=== PATIENT | female | born 1950 | race Caucasian/White ===

== ENCOUNTER 2016-07-10 10:26 | Day surgery (SDC) | payer MEDICARE, MEDICAID ==
[~2016-07-10] VITALS: Ht 172.7 cm; Wt 60.4 kg
[2016-07-10] VITALS (9 sets, daily range): BP systolic 112–125; BP diastolic 65–84; PULSE 73–91; RESP 16–24; O2SAT 93–100
[~2016-07-10 10:26] MED LIST: HYDR12.5 PO; LIP40 PO; LISI-567 PO; Lactated Ringer's 1,000 ML IV ONE; PRD5T PO
[2016-07-10] MEDS ORDERED: MetoCLOpramide 5 mg/mL 2 mL Inj ONE (10:27)
[2016-07-10] MEDS ORDERED: fentaNYL-PF 50 mCg/mL 2 mL Inj ONE (10:27)
[2016-07-10] MEDS ORDERED: Propofol 10,000 mCg/mL 20 mL Inj ONE (10:27)
[2016-07-10] MEDS ORDERED: Ondansetron 2 mg/mL 2 mL Inj ONE (10:27)
[2016-07-10] MEDS ORDERED: Dexamethasone 4 mg/mL Inj ONE (10:27)
[2016-07-10] MEDS ORDERED: Lactated Ringer's 1,000 ML IV ONE (12:40)
[2016-07-10] MEDS ORDERED: levoFLOXacin 500 mg/100 mL D5W Premix IV ONE (12:54)
[2016-07-10] MEDS: Levofloxacin 500 mg/100 mL D5W IV ONE ×2 (14:39→14:45)
--- NOTE | 2016-07-10 14:57 | PCM.HPANE ---
Patient Data Surgeon Admitting Provider: Attending Provider:Venessa Eason MD Primary Care Physician:Nicanor Campos MD Other Provider: Reason for Visit Right Kidney Stone Ht/WT & BMI Height (Feet): 5 Height (Inches): 8 Weight (Kilograms): 60.781 Body Mass Index 20.00 Allergies Coded Allergies: Penicillins (Verified Allergy, Severe, SWELLING, 07/06/16) latex (Verified Allergy, Severe, Rash, 07/06/16) TAPE (Verified Allergy, Unknown, UNKNOWN, 07/06/16) acetaminophen (Verified Allergy, Unknown, UNKNOWN, 07/06/16) oxycodone (Verified Allergy, Unknown, UNKNOWN, 07/06/16) Uncoded Allergies: iodine dye (Allergy, Severe, BURNING, 02/12/13) Past Anesthesia History Anesthesia History: Denies:: Anesthesia Reactions, Malignant Hyperthermia Diabetes History Hx Diabetes?: No MRSA MRSA: No Medications Hypertension Medication: Yes (HCTZ,LISINOPRIL) Reported Medications Prednisone (PredniSONE)5 Mg Tab5 Mg PO DAILY Ref 0 07/06/16 Lisinopril 20 Mg Ekwalw64 Mg PO DAILY 30 Days Ref 0 07/06/16 Atorvastatin (Lipitor)40 Mg Bnbysj16 Mg PO DAILY Ref 0 07/06/16 Hydrochlorothiazide 12.5 Mg Oveoovl01.5 Mg PO DAILY 30 Days Ref 0 07/06/16 Discontinued Reported Medications Estrogens Conjugated (Premarin)0.625 Mg Tablet0.625 Mg PO DAILY 30 Days Ref 0 X 21 DAYS, 7 DAYS OFF 07/06/16 Methotrexate Sodium (Methotrexate)2.5 Mg Tablet2.5 Mg PO Q12H WEEKLY X 3 DOSES 07/06/16 Cholecalciferol-Expunged Drug, Do Not Renew! (Vitamin D3-Expunged Drug, Do Not Renew!)1,000 Unit Tablet1,000 Units PO DAILY PLEASE VERIFY DOSAGE 02/12/13 Black Cohosh Root 1 Gm Powder1 Gm MC DAILY PLEASE VERIFY DOSAGE 02/12/13 MULTIVITAMIN-Expunged Drug, Do Not Renew! (MULTI VITAMIN -Expunged Drug, Do Not Renew!)1 Each Tablet1 Each PO DAILY 02/12/13 Cranberry Fruit (Cranberry)450 Mg Ymbnbi732 Mg PO DAILY PLEASE VERIFY DOSAGE 02/12/13 Calcium Carb & Cit/Vitamin D3 (Citracal + D Er Tablet)1 Each Tablet.er1 Each PO DAILY 02/12/13 Estrogens Conj-Expunged Drug, Do Not Renew! (Premarin-Expunged Drug, Do Not Renew!)0.3 Mg Tablet0.3 Mg PO DAILY 02/12/13 Atorvastatin-Expunged Drug, Do Not Renew! 80 Mg Xfjkzt75 Mg PO DAILY #30 TAB For Cholesterol Management. 02/12/13 [Methotrexate] No Conflict Check10 Tab PO WKLY 02/12/13 Etanercept-Expunged Drug, Do Not Renew! (Enbrel-Expunged Drug, Do Not Renew!)50 Mg Kit50 Mg SUBQ Q7D 30 Days 02/12/13 History History of ENT Problems?: Yes HEENT History: Positive for:: Dysphagia Hx of Heart Problems?: Yes Cardiovascular History: Positive for:: Abdominal Aortic Aneurism (S/P ENDOVASCULAR AAA RPR) Cardiac Surgery (HEART CATH/STENTING PRIOR TO 2003) Chest Pain Coronary Artery Disease (MS 1998) Hypertension (HYPERLIPIDEMIA) Denies:: Heart Murmur Hx of Respiratory Problem?: No Respiratory History: Denies:: Use of C-PAP Machine Hx Neurologic Problems?: Yes Hx of GI Problems?: Yes Gastrointestinal History: Positive for:: Gall Bladder Disease (S/P MADDY) Gastroesphageal Reflux (HX PUD,H.PYLORI,GASTRIC BEZOAR,GASTRIC OUTLET OBSTRUCTION,JACOME'S ESOP ) Hepatitis (HEP C BY HX, TESTING IN 2004 NEG.) Hiatal Hernia Liver Disease (HX LACERATED LIVER) Rectal Bleeding (HEMORRHOIDS) Other GI Pertinent History: S/P PARTIAL GASTRECTOMY/SPLENECTOMY,APPY(@ TIME OF HYST),ESOPHAGEAL DILATION Hx of Problems?: Yes Genitourinary History: Positive for:: Kidney Stones (RT KIDNEY STONE=CURRENT PROBLEM S/P RT ESWL 2012) Other Pertinent History: C/OF ABD-RT FLANK PAIN,HEMATURIA,FREQUENCY Female Hx: Denies:: Currently Skin History: Denies:: History Skin Disorders? Pressure Ulcers Hx Musculoskeletal Problems?: Yes Musculoskeletal History: Positive for:: Osteoarthritis (OSTEOPOROSIS) Rheumatoid Arthritis (NO LONGER TAKES METHOTREXATE/BIOLOGICS R/T LIVER ISSUES) Hx of Psycho/Social Problems?: No Hx Surgeries?: Yes (CYSTO,SPLENECTOMY,PARTIAL GASTRECTOMY,MADDY,HYST/APPY, HEART CATH/STENTING) Hx Any Other Health Problems?: Yes Other History: Positive for:: Cancer (?UTERINE) Hospitalization Denies:: Endocrine Disease (C/OF COLD INTOLERANCE) Thyroid Disease History Blood Transfusions: Positive for:: Blood Transfusions Denies:: Blood Transfuse Reaction Hx Diabetes: No Hx Alcohol Use: YesAlcoholic Drinks Per Day: 1/MONTHHx Substance Use: Yes ( MARIJUANA)Have You Smoked inLast 12 mo: YesApprox How Many Cigarettes/day: 8C/ DAY FOR 40YRS Stop/Bang S-Snoring: Do You Snore Loudly: No T-Tired: feel tired, fatigued: Yes O-Obsered: Observed not breath: No P-Blood Pressure: treated: Yes B- Body Mass Index > 35 kg/m2: No A- Age over 50: Yes N- Neck Large Circumference: No G- Gender Male: No DEONNA Total Score: 3 Risk Assessment Category Category 1A: Patient has history of documented sleep apnea, and HAS NOT received any narcotic, sedative or anesthesia administration during this stay. Category 1B: Patient has history of documented sleep apnea, and HAS received any narcotic , sedative or anesthesia administration during this stay Category 2: Patient has SUSPECTED Obstructive Sleep Apnea, and HAS received any narcotic , sedative or anesthesia administration during this stay. Category 3: Patient has SUSPECTED Obstructive Sleep Apnea and HAS NOT received narcotic, sedative or anesthesia administration during this stay. Category 4: Outpatient in Procedural Areas with known sleep apnea or who screen positive for High Risk via the STOP/BANG questionnaire. Exam Exam General Appearance: Alert, Oriented X3, Cooperative, No Acute Distress HEENT/AIRWAY: MP 2 Lungs: Clear to Auscultation Heart: Exam Unremarkable Plan Impression Patient chart reviewed, patient interviewed and anesthestic plan with risks, benefits, and alternatives discussed, and informed consent obtained. NPO Status: 02/12@1930, apple juice @2400 ASA Physical Status: ASA2 Mod Systemic Disease Anesthetic Plan: GA Bene/Risks/Altern/Consents: Yes HP Complete Prior to Induction: Yes Williams Mcginnis MD Jul 10, 2016 08:58
[2016-07-10] MEDS ORDERED: oxyCODONE-Acetamin 5-325 mg Tablet PO PRN (15:40)
[2016-07-10] MEDS ORDERED: HYDROmorphone 1 mg/mL Inj ONE (15:54)
--- NOTE | 2016-07-10 15:54 | DRSVH ---
PROCEDURE: X-RAY RETROGRADE UROGRAPHY INDICATIONS: RIGHT STONE, CYSTO, RIGHT STENT PLACEMENT TECHNIQUE: 3 intra-operative images acquired by the Urology service. COMPARISON: Outside Film, CT, CT ABD PELVIS WO CON, 03/20/2016, 11:47. FINDINGS: Intraoperative fluoroscopy images demonstrate contrast injection of the right renal collect ing system. There is a 1.2 cm filling defect within the renal pelvis in this patient with history of renal pelvic calculus consistent with renal stone. The visualized portions of the ureter are grossly normal and no extravasation of contrast media seen. Ureteral stent in place. IMPRESSION: 1. A 1.2 cm right renal pelvic stone. 2. Placement of right ureteral stent. Dictated by: Edin BEASLEY Interpreted: Angelica Cheung MD on 07/10/2016 at 15:52 Transcribed by: JASKARAN on 07/10/2016 at 15:53 Approved by: Angelica Cheung M.D. on 07/10/2016 at 17:22
[2016-07-10] MEDS ORDERED: Lactated Ringer's 1,000 ML IV SCH (15:58)
[2016-07-10] MEDS ORDERED: Lactated Ringer's 500 ML IV PRN (15:58)
[2016-07-10] MEDS ORDERED: EPHEDrine Sulfate 50 mg/mL Inj IVPUSH PRN (16:00)
[2016-07-10] MEDS ORDERED: fentaNYL-PF 50 mCg/mL 2 mL Inj IVPUSH PRN (16:00)
[2016-07-10] MEDS ORDERED: HYDROmorphone 1 mg/mL Inj IVPUSH PRN (16:00)
[2016-07-10] MEDS ORDERED: Ondansetron 2 mg/mL 2 mL Inj IVPUSH PRN (16:00)
[2016-07-10] MEDS ORDERED: MetoCLOpramide 5 mg/mL 2 mL Inj IVPUSH PRN (16:00)
[2016-07-10] MEDS ORDERED: Phenylephrine 10,000 mCg/mL Inj IVPUSH PRN (16:00)
[2016-07-10] MEDS ORDERED: Dexamethasone 4 mg/mL Inj IVPUSH PRN (16:00)
--- NOTE | 2016-07-10 16:12 | PCM.ANEP1 ---
Post Anesthesia Phase 1 PACU Phase 1 Assessment Vital Signs Vital Signs Date Time Temp Pulse Resp B/P Pulse Ox O2 Delivery O2 Flow Rate FiO2 07/10/16 12:21 36.8 89 18 116/83 97 Room Air Anesthetic Administered: GA Level of Alertness: Sleeping, hard to arouse Oxygen Delivery: Room Air Lungs: Clear to Auscultation Williams Mcginnis MD Jul 10, 2016 16:12
--- NOTE | 2016-07-10 16:12 | PCM.ANEP2 ---
Post Anesthesia Evaluation ASA/CMS Post Anesthesia VS in Patient's Normal Range?: Yes Resp Stable; Airway Patent?: Yes CV Function & Hydration Stable: Yes Mental Status Recovered?: Yes Pain control Satisfactory?: Yes N/V Control Satisfactory?: Yes Williams Mcginnis MD Jul 10, 2016 16:12
--- NOTE | 2016-07-11 00:14 | OP ---
[address] [address] OPERATIVE REPORT PATIENT: ANJU BELTRE : 1950 MR#: [id number] ADMIT: 07/10/2016 JOB ID: [id number] DATE OF SURGERY: 07/10/2016 PREOPERATIVE DIAGNOSIS(ES): Right renal pelvis stone. POSTOPERATIVE DIAGNOSIS(ES): Right renal pelvis stone. PROCEDURE PERFORMED: 1. Cystoscopy and right retrograde pyelogram. 2. Right ureteroscopy with laser lithotripsy and stone basketing. 3. Right ureteral stent placement. SURGEON: Venessa Eason MD. SUPERVISOR REACTOR FUELING: None. FINDINGS: A 1.5 cm renal pelvis stone that was very dense and hard. ANESTHESIA: General. ESTIMATED BLOOD LOSS: 5 mL. DRAINS: A 6 x 26 right double-J ureteral stent. SPECIMEN: Right kidney stone. COMPLICATIONS: None. CONDITION: Stable. INDICATION FOR PROCEDURE: The patient is a 66-year-old woman with a right renal pelvis stone. She wished to undergo ureteroscopy. DESCRIPTION OF PROCEDURE: After informed consent was obtained, the patient was taken to the operating room. A time-out was performed, identifying correct patient, surgical site, and procedure. General anesthesia was smoothly induced. She was given intravenous antibiotics just prior to the start of procedure. She was placed in the lithotomy position and all pressure points were identified and appropriately padded. Her genitals were then prepped and draped in usual sterile fashion. A 22-Georgian rigid cystoscope was applied to the patient's urethra and advanced to bladder. Bladder was drained. The right ureteral orifice was seen in orthotopic position. It was cannulated with 5-Georgian open-ended Pollack catheter. Retrograde pyelogram was performed. It appeared normal. Two Sensor Tip wires were then advanced into the renal pelvis as seen under fluoroscopy. A 12/14 access sheath, 28 cm long, was loaded over one of the wires and advanced to the proximal ureter. Flexible ureteroscopy then commenced. There was seen a stone consistent with the CT findings. A 273 micron laser FiberWire was used to break the stone into small pieces. It dusted up quite well. Stone basket was used to bring down some of the stone for specimen. The other stone debris fragments were quite small and not basketable. The ureteroscope was then brought down to the level of the access sheath and both were brought down in tandem. The remaining wire was then backloaded from the cystoscope and a 6 x 26 double-J ureteral stent was loaded over it and advanced to renal pelvis under fluoroscopy. The wire was then removed, leaving a nice coil in the patient's bladder as seen under direct vision. The patient was then reversed from general anesthesia and taken to the PACU in stable condition. HOOD
[2016-07-15 09:08] LABS: Stone Color Brown (.)
== END 2016-07-10 23:59 ==
LOC: SAS 10:26
PROVIDERS: ATTEND Urology
DX: N20.0 Calculus of kidney (principal); R13.10 Dysphagia, unspecified; I10 Essential (primary) hypertension; I25.10 Atherosclerotic heart disease of native coronary artery without angina pectoris; I25.2 Old myocardial infarction; K21.9 Gastro-esophageal reflux disease without esophagitis; K44.9 Diaphragmatic hernia without obstruction or gangrene; M81.8 Other osteoporosis without current pathological fracture; M06.9 Rheumatoid arthritis, unspecified; F17.210 Nicotine dependence, cigarettes, uncomplicated; Z79.899 Other long term (current) drug therapy